=== PATIENT | male | born 1950 | race Caucasian/White ===

== ENCOUNTER 2017-02-20 20:36 | Inpatient (IN) ==
--- NOTE | 2017-02-20 21:08 | Emergency Department Note ---
Disposition Clinical Impression: Acute cholecystitis Disposition: Admitted As Inpatient Condition: Good Referrals: NONE,PCP [Primary Care Provider] - Abdominal Pain HPI - General Chief Complaint: ED Abdominal Pain Stated Complaint: ABD PAIN Time Seen by Provider: 02/20/17 20:41 Source: patient Nursing Notes Reviewed: Yes Vital Signs Reviewed: Yes - History of Present Illness HPI Narrative: 66-year-old male presents to emergency department with right upper quadrant abdominal pain. Patient has had abdominal pain for the last 48 hours. Started suddenly. Was seen at the [facility] diagnosed with acute cholecystitis few noncontrasted CT scan he was given IV pain medication which resolved his discomfort and he was sent to the [facility] for further evaluation and treatment. Currently he is comfortable he is not having any nausea or vomiting and has no other complaints at this time. Pt Subjective Complaint: abdominal pain Onset (ago): day(s) Consistency: constant Location: RUQ Pain Severity: none Pain Scale: 0 Quality: cramping Radiation: none Migration to: no migration Improves with: nothing Worsens with: nothing Associated symptoms: Reports: denies other symptoms Treatments prior to arrival: prescription analgesics - Related Data Home Medications Medication Instructions Recorded Confirmed Aspirin 81 mg PO DAILY 02/20/17 02/20/17 Atorvastatin [Lipitor] 10 mg PO HS 02/20/17 02/20/17 Calcium Carbonate [Calcium] 500 mg PO 02/20/17 [place]-3 Fatty Acids [Fish Oil] 300 mg PO 02/20/17 Allergies Allergy/AdvReac Type Severity Reaction Status Date / Time pravastatin Allergy Hives Verified 02/20/17 20:40 All systems ED: reviewed and negative except as stated. Constitutional: Reports: as per HPI Eyes: Reports: as per HPI ENT ED: Reports: as per HPI Cardiovascular: Reports: as per HPI Gastrointestinal: Reports: abdominal pain Genitourinary: Reports: as per HPI Musculoskeletal: Reports: as per HPI Integumentary: Reports: as per HPI Abdominal Pain PMH - Past Medical History Medical history: Reports: hyperlipidemia Male Surgical History: Reports: appendectomy, vasectomy, other Psychiatric history: Reports: no psych history - Social History Smoking status: Never smoker Alcohol use: Reports: none Drug use: Reports: none Physical Exam - General Limitations: no limitations General appearance: alert, in no apparent distress - Head Head exam: atraumatic - Eye Eye exam: Present: normal appearance - ENT ENT exam: normal exam - Neck Neck exam: Present: normal inspection - Chest Chest inspection: Present: normal inspection, symmetric chest wall rise - Respiratory Respiratory exam: Present: normal lung sounds bilaterally. Absent: respiratory distress - Cardiovascular Cardiovascular exam: Present: regular rate - Abdominal Exam Abdominal exam: Present: soft, tenderness (Very mild tenderness with palpation of the right upper quadrant and midepigastric area. There is no guarding or rigidity.), normal bowel sounds. Absent: distention, guarding, rebound, rigidity Abdominal tenderness: Present: RUQ - Neurological Exam Neurological exam: Present: alert - Psychiatric Psychiatric exam: Present: normal affect, normal mood - Skin Skin exam: Present: warm, dry, intact Course Vital Signs Temperature 98.1 F 02/20/17 20:41 Pulse Rate 50 02/20/17 20:41 Respiratory Rate 18 02/20/17 20:41 Blood Pressure 168/99 02/20/17 20:41 O2 Sat by Pulse Oximetry 98 02/20/17 20:41 Temperature 98.1 F 02/20/17 20:41 Pulse Rate 50 02/20/17 20:41 Respiratory Rate 18 02/20/17 20:41 Blood Pressure 168/99 02/20/17 20:41 O2 Sat by Pulse Oximetry 98 02/20/17 20:41 Oxygen Delivery Oxygen Delivery Room Air Abdominal Pain - MDM Narrative Medical decision making narrative: I contacted Dr. Oconnell general surgery after evaluating the patient. We reviewed the patient's CT findings and lab tests from the [facility]. She agreed to admit the patient. Patient appeared stable hemodynamically and comfortable as well while in the emergency department. He will be admitted to the hospital for further evaluation and treatment. I did ask if she wanted any additional antibiotics are therapy started at this time and she did not. - Medical Records Medical records reviewed: Yes I reviewed the patient's medical records. - Lab Data Lab results reviewed: Yes I reviewed the patient's lab results. - Radiology Data Radiology results reviewed: Yes I reviewed the patient's radiology results. I reviewed the radiology report from the [facility] which was consistent with acute cholecystitis.
[2017-02-20 21:41] LABS: Bilirubin,Urine Negative (Negative); Blood,Urine Negative (Negative); Clarity,Urine Clear (Clear); Color,Urine Yellow (Yellow); Glucose,Urine (UA) Normal (Normal); Ketones,Urine Negative (Negative); Leukocyte Esterase,Urine Negative (Negative); Nitrite,Urine Negative (Negative); Protein,Urine Negative (Neg-Trace); Specific Gravity,Urine 1.018 (1.010-1.025); Urobilinogen,Urine Normal (Normal)
[2017-02-20 21:45] LABS: Basophils # 0.1 K/mcL (0.0-0.2); Basophils % 0.8 %; Eosinophils # 0.1 K/mcL (0.0-0.6); Eosinophils % 0.8 %; Hematocrit 46.3 % (37.5-50.1); Hemoglobin 15.8 g/dL (12.9-16.9); Immature Granulocytes % 0.7 % (0-4); Lymphocytes # 1.7 K/mcL (0.6-4.6); Lymphocytes % 16.2 %; Mean Corpuscular HGB Conc 34.1 g/dL (31.6-35.5); Mean Corpuscular Hemoglobin 29.5 pg (28.0-33.3); Mean Corpuscular Volume 86.5 fL (83.0-100.0); Mean Platelet Volume 9.9 fL (9.4-12.4); Monocytes # 0.8 K/mcL (0.0-1.3); Monocytes % 7.1 %; Neutrophils # 7.9 K/mcL (1.6-8.9); Platelet Count 242 K/mcL (140-400); Red Blood Count 5.35 M/mcL (4.19-5.50); Red Cell Distribution Width 13.1 % (11.5-14.5); Segmented Neutrophils % 74.4 %
[2017-02-20 21:51] LABS: Prothrombin Time 11.1 Seconds (9.4-12.1)
[2017-02-20 21:54] LABS: Activated Partial Thrombo Time 25.7 Seconds (26.0-36.0)
[2017-02-20 21:57] LABS: Alanine Aminotransferase 21 Units/L (0-55); Albumin 3.8 g/dL (3.5-5.0); Albumin/Globulin Ratio 1.1 (1.1-2.2); Alkaline Phosphatase 139 Units/L (38-126); Amylase 83 Units/L (25-125); Aspartate Amino Transferase 19 Units/L (5-34); BUN/Creatinine Ratio 9 (6-26); Bilirubin,Direct 0.3 mg/dL (0.0-0.5); Bilirubin,Indirect 0.5 mg/dL (0.0-1.2); Bilirubin,Total 0.8 mg/dL (0.2-1.2); Blood Urea Nitrogen 9 mg/dL (8-26); Calcium 9.5 mg/dL (8.6-10.8); Carbon Dioxide 24 mEq/L (19-29); Chloride 105 mEq/L (98-109); Globulin 3.6 g/dL (2.4-3.5); Glucose 97 mg/dL (70-99); Lipase 33 Units/L (8-78); Osmolality,Calculated 287 (280-300); Potassium 3.7 mEq/L (3.5-4.5); Sodium 139 mEq/L (136-145); Total Protein 7.4 g/dL (6.0-8.3); eGFR For African Americans > 60 (> 60); eGFR For Non-African Americans > 60 (> 60)
[2017-02-20] MEDS ORDERED: *HR* Morphine 2 MG/ML SYRINGE IVP PRN (23:01)
[2017-02-20] MEDS ORDERED: Ondansetron 4 MG/2 ML VIAL IVP PRN (23:02)
[2017-02-20] MEDS: 0.9 % Sodium Chloride 1,000 ML IVC SCH (23:33)
[2017-02-20] MEDS: cefOXitin 2,000 MG in D5% in Water (Mini-Bag+) 100 ML IVPB SCH (23:36)
[2017-02-21 05:29] LABS: Basophils # 0.1 K/mcL (0.0-0.2); Eosinophils # 0.1 K/mcL (0.0-0.6); Eosinophils % 1.4 %; Hematocrit 42.7 % (37.5-50.1); Hemoglobin 14.3 g/dL (12.9-16.9); Immature Granulocytes % 0.8 % (0-4); Lymphocytes # 1.8 K/mcL (0.6-4.6); Lymphocytes % 22.6 %; Mean Corpuscular HGB Conc 33.5 g/dL (31.6-35.5); Mean Corpuscular Hemoglobin 29.4 pg (28.0-33.3); Mean Corpuscular Volume 87.7 fL (83.0-100.0); Mean Platelet Volume 10.2 fL (9.4-12.4); Monocytes # 0.7 K/mcL (0.0-1.3); Monocytes % 9.4 %; Neutrophils # 5.1 K/mcL (1.6-8.9); Platelet Count 222 K/mcL (140-400); Red Blood Count 4.87 M/mcL (4.19-5.50); Red Cell Distribution Width 13.2 % (11.5-14.5); Segmented Neutrophils % 64.8 %
[2017-02-21 05:43] LABS: Alanine Aminotransferase 19 Units/L (0-55); Albumin 3.2 g/dL (3.5-5.0); Albumin/Globulin Ratio 1.2 (1.1-2.2); Alkaline Phosphatase 116 Units/L (38-126); Aspartate Amino Transferase 15 Units/L (5-34); BUN/Creatinine Ratio 11 (6-26); Bilirubin,Direct 0.3 mg/dL (0.0-0.5); Bilirubin,Indirect 0.5 mg/dL (0.0-1.2); Bilirubin,Total 0.8 mg/dL (0.2-1.2); Blood Urea Nitrogen 11 mg/dL (8-26); Calcium 8.6 mg/dL (8.6-10.8); Carbon Dioxide 26 mEq/L (19-29); Chloride 108 mEq/L (98-109); Globulin 2.7 g/dL (2.4-3.5); Glucose 100 mg/dL (70-99); Osmolality,Calculated 287 (280-300); Potassium 3.7 mEq/L (3.5-4.5); Sodium 139 mEq/L (136-145); eGFR For African Americans > 60 (> 60); eGFR For Non-African Americans > 60 (> 60)
[2017-02-21 05:44] LABS: Total Protein 5.9 g/dL (6.0-8.3)
[2017-02-21] MEDS ORDERED: Pantoprazole 40 MG VIAL IVP SCH (06:30)
[2017-02-21] MEDS: 0.9 % Sodium Chloride 1,000 ML IVC SCH (08:58)
[2017-02-21] MEDS: cefOXitin 2,000 MG in D5% in Water (Mini-Bag+) 100 ML IVPB SCH ×2 (09:00→16:11)
--- NOTE | 2017-02-21 10:37 | General Surg History&Physical ---
<Crys Khan Kwaku - Last Filed: 02/21/17 10:34> Date of Encounter: 02/21/17 Time of Encounter: 09:30 Assessment and Plan (1) Acute cholecystitis Current Visit: Yes Status: Acute The assessment and plan as outlined above was discussed with the patient and/or family members who expressed understanding and agreement. All questions were answered. Risks, benefits, alternatives, expected outcomes have been reviewed with the patient regarding a laparoscopic cholecystectomy (possible open, possible cholangiogram) with Dr. Ryan in the next 24 hours and he is in agreement to proceed NPO IV fluids- 100ml/hour IV antibiotics- Cefoxitin Supportive care and pain control IS every 1 hour while awake PPI therapy daily Repeat am labs (2) Hyperlipidemia Current Visit: Yes Status: Chronic The assessment and plan as outlined above was discussed with the patient and/or family members who expressed understanding and agreement. All questions were answered. Qualifiers: Hyperlipidemia type: unspecified Qualified Code(s): E78.5 - Hyperlipidemia , unspecified (3) Pulmonary nodules/lesions, multiple Current Visit: Yes Status: Acute The assessment and plan as outlined above was discussed with the patient and/or family members who expressed understanding and agreement. All questions were answered. Low risk patient I discussed the findings with the patient and would recommend follow-up imaging in the next 6-12 months. He verbalized understanding. (4) Abnormal CT of liver Current Visit: Yes Status: Acute The assessment and plan as outlined above was discussed with the patient and/or family members who expressed understanding and agreement. All questions were answered. I discussed the findings on CAT scan evaluation with the patient and explained that he will need a designated CAT scan of the liver in the upcoming weeks. He verbalized understanding. (5) DVT prophylaxis Current Visit: Yes Status: Acute The assessment and plan as outlined above was discussed with the patient and/or family members who expressed understanding and agreement. All questions were answered. EPCDs to bilateral lower extremities for DVT prophylaxis Ambulate hallways 3 times a day with assistance History of Present Illness Chief complaint: Abdominal pain HPI: Mr. DASILVA is a 66 year old male who presented to the [facility] system with a 36 hour history of epigastric abdominal pain. He states that the pain has been constant since onset on Monday around 4 PM. He states the pain is localized to the epigastric area and he denies any radiating factors. He states that nothing makes the pain worse or better. He denies any nausea or vomiting. He denies any diarrhea or constipation. He denies any fevers or chills. He denies any heartburn. He denies any difficulty with urination. He denies any shortness of breath or chest pain. He states that he did have a pain similar to this approximately 3-4 years ago and he had a complete workup at that time. He was given the option to undergo surgery at that time but states that he opted to treat conservatively. He states that his pain went away and this is the first recurrence since that time. He has had a CAT scan evaluation of the [facility] which shows concerns for cholelithiasis and acute cholecystitis. He has been transferred to [place] for further workup and treatment. Past Med Surg Social Fam HX - Past Medical History Source: patient Medical history: hyperlipidemia Psychiatric history: no psych history - Past Surgical History Surgical History: appendectomy (in his 20's), vasectomy, other (EGD 3-4 years ago (benign polyp), Colonoscopy 3-4 year ago (normal)) - Social History Smoking Status: Never smoker Smokeless Tobacco Status: No Alcohol use: none Drug use: none Current living situation: Home - Independent Activity Level: Independent ambulation - Family History Mother Living Status: Age at : 77 Cause of : Uterine cancer Hx Family Cancer: Yes (uterine cancer) Father Living Status: Age at : 62 Cause of : Congenital heart condition Hx Family Cardiac Disorders: Yes (Congenital heart condition) Brother Living Status: Still Living Hx Family Cancer: Yes (alive (diagnosed at the age of 64)) Medications and Allergies Aspirin Enteric Coated [Aspirin EC] 81 mg PO DAILY 02/20/17 [History] Atorvastatin [Lipitor] 5 mg PO HS 02/20/17 [History] Calcium Citrate/Vitamin D3 [Calcium Citrate with D Tablet] 1 each PO DAILY 02/20 [History] Cholecalciferol (D-3) [Vitamin D] 2,000 unit PO DAILY 02/20/17 [History] [place]-3/Dha/Epa/Fish Oil [Fish Oil 1,000 mg Softgel] 1,000 mg PO BID 02/20/17 [ History] 3 Allergy/AdvReac Type Severity Reaction Status Date / Time pravastatin Allergy Hives Verified 02/20/17 20:40 Review of Systems All systems PM: reviewed and no additional remarkable complaints except as stated (in the HPI) All systems PM: A 10-system review of systems was performed and is negative for pertinent findings except as documented above in the HPI. General Surgery Exam Initial Vital Signs Temp Pulse Resp BP Pulse Ox 98.1 F 50 18 168/99 98 02/20/17 20:41 02/20/17 20:41 02/20/17 20:41 02/20/17 20:41 02/20/17 20:41 - General physical appearance well developed, well nourished, no distress - Eyes normal ocular movement - ENT normal mucosa, atraumatic, normocephalic - Neck trachea midline - Respiratory normal respiratory effort, clear to auscultation - Cardiovascular Cardiovascular exam: Present: RRR - Abdomen Abdomen general surgery: Present: bowel sounds present, soft, tender (mildly with deep palpation) Abdominal Tenderness: Present: epigastic, RUQ - Integumentary Integumentary general surgery: Present: warm and dry - Neurologic Present: CN 2-12 grossly intact - Musculoskeletal Present: normal gait, normal posture - Psychiatric Psychiatric general surgery: Present: appropriate, oriented to person, oriented to place, oriented to time, speech is normal, memory intact Results - Labs 02/21/17 04:48 02/21/17 04:48 Abnormal lab results APTT 25.7 Seconds (26.0-36.0) L 02/20/17 21:29 Glucose 100 mg/dL (70-99) H 02/21/17 04:48 POC Glucose 102 (58-89) H 02/21/17 05:22 Serum Total Protein 5.9 g/dL (6.0-8.3) L D 02/21/17 04:48 Albumin 3.2 g/dL (3.5-5.0) L 02/21/17 04:48 Diabetes panel 02/21/17 Range/Units 04:48 Sodium 139 (136-145) mEq/L Potassium 3.7 (3.5-4.5) mEq/L Chloride 108 (98-109) mEq/L Carbon Dioxide 26 (19-29) mEq/L BUN 11 (8-26) mg/dL Creatinine 1.00 (0.72-1.25) mg/dL Glucose 100 H (70-99) mg/dL Calcium 8.6 (8.6-10.8) mg/dL AST 15 (5-34) Units/L ALT 19 (0-55) Units/L Alkaline Phosphatase 116 (38-126) Units/L Albumin 3.2 L (3.5-5.0) g/dL Calcium panel 02/21/17 Range/Units 04:48 Calcium 8.6 (8.6-10.8) mg/dL Albumin 3.2 L (3.5-5.0) g/dL Pituitary panel 02/21/17 Range/Units 04:48 Sodium 139 (136-145) mEq/L Potassium 3.7 (3.5-4.5) mEq/L Chloride 108 (98-109) mEq/L Carbon Dioxide 26 (19-29) mEq/L BUN 11 (8-26) mg/dL Creatinine 1.00 (0.72-1.25) mg/dL Glucose 100 H (70-99) mg/dL Calcium 8.6 (8.6-10.8) mg/dL Adrenal panel 02/21/17 Range/Units 04:48 Sodium 139 (136-145) mEq/L Potassium 3.7 (3.5-4.5) mEq/L Chloride 108 (98-109) mEq/L Carbon Dioxide 26 (19-29) mEq/L BUN 11 (8-26) mg/dL Creatinine 1.00 (0.72-1.25) mg/dL Glucose 100 H (70-99) mg/dL Calcium 8.6 (8.6-10.8) mg/dL Total Bilirubin 0.8 (0.2-1.2) mg/dL AST 15 (5-34) Units/L ALT 19 (0-55) Units/L Alkaline Phosphatase 116 (38-126) Units/L Albumin 3.2 L (3.5-5.0) g/dL All other labs normal. - Imaging Additional studies[facility] and findings include: #1 Acute cholecystitis #2 Multiple pulmonary nodules bilaterally in lung bases (low risk patient and follow Fleishner criteria for follow-up imaging) #3 Increased hypoattentuation in the right lobe of the liver (could be consistent with liver steatosis but indication for designated liver CT for further evaluation) - Attending Attestation For this encounter, I have reviewed the G[employer] SHOVEL OPERATOR or PA documentation, treatment plan, and medical decision making; and I have had face to face time with this patient. <Genia Ryan Meño - Last Filed: 02/21/17 19:59> Date of Encounter: 02/21/17 Assessment and Plan (1) Acute cholecystitis Current Visit: Yes Status: Acute The assessment and plan as outlined above was discussed with the patient and/or family members who expressed understanding and agreement. All questions were answered. History of Present Illness HPI: Mr. DASILVA is a 66 year old male Review of Systems All systems PM: A 10-system review of systems was performed and is negative for pertinent findings except as documented above in the HPI. General Surgery Exam Initial Vital Signs Temp Pulse Resp BP Pulse Ox 98.1 F 50 18 168/99 98 02/20/17 20:41 02/20/17 20:41 02/20/17 20:41 02/20/17 20:41 02/20/17 20:41 Results - Labs 02/21/17 04:48 02/21/17 04:48 Abnormal lab results APTT 25.7 Seconds (26.0-36.0) L 02/20/17 21:29 Glucose 100 mg/dL (70-99) H 02/21/17 04:48 POC Glucose 112 (58-89) H 02/21/17 11:07 Serum Total Protein 5.9 g/dL (6.0-8.3) L D 02/21/17 04:48 Albumin 3.2 g/dL (3.5-5.0) L 02/21/17 04:48 Diabetes panel 02/21/17 Range/Units 04:48 Sodium 139 (136-145) mEq/L Potassium 3.7 (3.5-4.5) mEq/L Chloride 108 (98-109) mEq/L Carbon Dioxide 26 (19-29) mEq/L BUN 11 (8-26) mg/dL Creatinine 1.00 (0.72-1.25) mg/dL Glucose 100 H (70-99) mg/dL Calcium 8.6 (8.6-10.8) mg/dL AST 15 (5-34) Units/L ALT 19 (0-55) Units/L Alkaline Phosphatase 116 (38-126) Units/L Albumin 3.2 L (3.5-5.0) g/dL Calcium panel 02/21/17 Range/Units 04:48 Calcium 8.6 (8.6-10.8) mg/dL Albumin 3.2 L (3.5-5.0) g/dL Pituitary panel 02/21/17 Range/Units 04:48 Sodium 139 (136-145) mEq/L Potassium 3.7 (3.5-4.5) mEq/L Chloride 108 (98-109) mEq/L Carbon Dioxide 26 (19-29) mEq/L BUN 11 (8-26) mg/dL Creatinine 1.00 (0.72-1.25) mg/dL Glucose 100 H (70-99) mg/dL Calcium 8.6 (8.6-10.8) mg/dL Adrenal panel 02/21/17 Range/Units 04:48 Sodium 139 (136-145) mEq/L Potassium 3.7 (3.5-4.5) mEq/L Chloride 108 (98-109) mEq/L Carbon Dioxide 26 (19-29) mEq/L BUN 11 (8-26) mg/dL Creatinine 1.00 (0.72-1.25) mg/dL Glucose 100 H (70-99) mg/dL Calcium 8.6 (8.6-10.8) mg/dL Total Bilirubin 0.8 (0.2-1.2) mg/dL AST 15 (5-34) Units/L ALT 19 (0-55) Units/L Alkaline Phosphatase 116 (38-126) Units/L Albumin 3.2 L (3.5-5.0) g/dL All other labs normal. - Attending Attestation I have personally performed a face to face evaluation on this patient. I have reviewed and agree with the care plan. History and Exam by me shows:
--- NOTE | 2017-02-21 15:18 | Anesthesia Evaluation PreOp ---
Date of Encounter: 02/21/17 Time of Encounter: 17:36 - Past History Planned Operation: lap ron Cardiac History: Hyperlipidemia Pulmonary History: Denies Any Significant HX [employer] History: Denies Any Significant HX Other Medical History: Hepatic (undefined liver lesions) Anesthesia History: No Prior Anesthetic Complications, Past Anesthesia (appy, vasectomy) Alcohol Use: none Drug use: none Medications and Allergies Aspirin Enteric Coated [Aspirin EC] 81 mg PO DAILY 02/20/17 [History] Atorvastatin [Lipitor] 5 mg PO HS 02/20/17 [History] Calcium Citrate/Vitamin D3 [Calcium Citrate with D Tablet] 1 each PO DAILY 02/20 [History] Cholecalciferol (D-3) [Vitamin D] 2,000 unit PO DAILY 02/20/17 [History] [place]-3/Dha/Epa/Fish Oil [Fish Oil 1,000 mg Softgel] 1,000 mg PO BID 02/20/17 [ History] 3 Allergy/AdvReac Type Severity Reaction Status Date / Time pravastatin Allergy Hives Verified 02/20/17 20:40 - Meds/Allergy Pre-op Review Medications Reviewed: Yes Allergies Reviewed: Yes Beta Blockers on Current Med List: No Anesthesia Results - Labs 02/21/17 04:48 02/21/17 04:48 Anesthesia Exam Selected Entries 02/21/17 11:01 Temperature 97.9 F Pulse Rate 58 Respiratory Rate 16 Blood Pressure 142/84 O2 Sat by Pulse Oximetry 95 Weight: 82.5kg NPO (# of Hours): 8 - HEENT Pupil (Motor): EOMI Mallampati: II Teeth: Edentulous Oral Opening: Greater than 3 - [employer] LOC: Oriented [employer] Motor: Normal RUE, Normal LUE, Normal RLE, Normal LLE, Normal Face [employer] Sensory: Normal: RUE, LUE, RLE, LLE, Face - Cardiac Rhythm: Regular Murmur: None - Pulmonary Breath Sounds: bilateral Clear Respiratory Effort: Symmetrical Anesthesia Assess/Plan ASA Score: 2 Modified Leo Scale for Level of Consciousness: Cooperative, oriented, and tranquil Anesthetic Plan: General Monitoring Plan: Standard Monitors Recovery Plan: PACU (discussed GA, agrees to proceed)
[2017-02-21] MEDS ORDERED: *HR* Propofol 200 MG/20 ML VIAL IVP ONE ×2 (15:53→17:47)
[2017-02-21] MEDS ORDERED: *HR* Rocuronium Bromide 50 MG/5 ML VIAL ONE ×2 (15:53→17:48)
[2017-02-21] MEDS ORDERED: Lidocaine -MPF 2% 2 ML VIAL ONE ×2 (15:53→17:48)
[2017-02-21] MEDS ORDERED: Ondansetron 4 MG/2 ML VIAL ONE ×3 (15:53→20:05)
[2017-02-21] MEDS ORDERED: *HR* Midazolam HCl 2 MG/2 ML VIAL ONE ×2 (15:53→17:46)
[2017-02-21] MEDS ORDERED: *HR* FentaNYL (PF) 100 MCG/2 ML VIAL ONE ×2 (15:53→17:46)
[2017-02-21] MEDS ORDERED: Lidocaine -MPF 4% 5 ML AMPUL ONE ×2 (15:56→17:50)
[2017-02-21] MEDS ORDERED: *HR* Succinylcholine 200 MG/10 ML VIAL IVP ONE (17:48)
[2017-02-21] MEDS ORDERED: CefOXitin 2,000 MG VIAL IVPB ONE (18:52)
[2017-02-21] MEDS ORDERED: Dexamethasone 4 MG/ML VIAL ONE (19:10)
[2017-02-21] MEDS ORDERED: Neostigmine Methylsulfate 3 MG/3 ML SYRINGE ONE (19:12)
--- NOTE | 2017-02-21 19:57 | Operative Note ---
Date of procedure: 02/21/17 Pre-op diagnosis: acute cholecystitis Post-op diagnosis: same Procedure: Laparoscopic cholecystectomy Complications: none immediate Anesthesia: GETA, local Local Anesthetics: 0.5% Sensorcaine HCL SubQ (cc) Surgeon: Genia Ryan Lead Pressman [employer] Printing: Delisa Aguilar Estimated blood loss (cc): 25 Specimen: gallbladder and contents Condition: stable Disposition: PACU Procedure in Detail: The patient was brought into the operating suite and placed supine on the operating table. Sign-in was performed and everyone was in agreement. Anesthesia was induced and patient was endotracheally intubated by anesthesia without incident and they also placed an OG tube. The abdomen was prepped and draped in the usual sterile fashion. A timeout was performed again everyone was in agreement. A supraumbilical incision was made through the skin into the subcutaneous tissue with an 11 blade. Towel clamps were placed on either side of the umbilicus for retraction. S retractors were used to dissect down to the anterior abdominal wall linea alba fascia. A Veress needle was placed through this incision and a water drop test confirmed placement and the abdomen was insufflated. The abdomen was entered with a 5 mm 0 degree laparoscope on a 5 mm X-heath trocar. The area and entry was visualized was no bleeding and no apparent bowel injury. A 5 mm subxiphoid port was placed under direct visualization after first incising the skin with an 11 blade. A right upper quadrant subcostal position midclavicular line 5 mm port was placed under direct visualization after first incising skin with 11 blade. The laparoscope was placed in this and we exchanged the supraumbilical port for a 12 mm port under direct visualization. The last 5 mm port was placed in the right upper quadrant subcostal position anterior axillary line after first incising the skin with an 11 blade. The patient was placed in steep reverse Trendelenburg left side down position. The dome of the gallbladder was grasped and retracted cephalad. Omental adhesions to the body and infundibulum of the gallbladder were taken down bluntly with the [place]. The infundibulum was grasped and retracted laterally. Using the [place] we dissected out the cystic duct and cystic artery. Two 5 mm hemoclips were placed distally on the cystic duct one proximally and it was transected with curved scissors. The cystic artery was doubly clipped proximally, once distally and transected with curved scissors. The gallbladder was removed off the cystic plate with the Bovie. Any bleeding points were stopped with the Bovie. The gallbladder was placed in a laparoscopic Endo Catch bag and removed via the supraumbilical incision site. The inferior edge of the liver was bluntly retracted cephalad and the cystic plate was copiously irrigated with sterile saline. There was no bleeding or apparent bile leak from the cystic plate and the clips on the cystic artery and duct were intact. There was a little oozing from the gallbladder fossa and a piece of surgicel was placed at the gallbladder fossa. All irrigation was suctioned free from the abdomen. All insufflation was suctioned free from the abdomen and the ports removed. The abdominal wall at the supraumbilical incision site was closed with a 0 Vicryl [id number] stitch. 30 mL of 0.5% Marcaine was injected subcutaneously at the 4 port sites. The skin at the three 5 mm port sites were closed with 4-0 Monocryl interrupted subcuticular stitches. The skin at the supraumbilical incision site was closed with a 4-0 Monocryl running subcuticular stitch. Steri-Strips were applied to all wounds. The patient was awoken in the operating suite having tolerated the procedure well and were taken to PACU in stable condition after all lap and ensuring counts were correct at the end of the case.
[2017-02-21] MEDS ORDERED: Ondansetron 4 MG/2 ML VIAL IVP ONE (20:05)
[2017-02-21] MEDS ORDERED: *HR* HYDROmorphone (PF) 1 MG/ML SYRINGE ONE (20:05)
[2017-02-21] MEDS: *HR* HYDROmorphone 2 MG/ML SYRINGE IVP PRN ×4 (20:05→20:31)
[2017-02-21] MEDS ORDERED: Glycopyrrolate 0.2 MG/ML VIAL ONE (20:15)
[2017-02-21] MEDS ORDERED: 0.9 % Sodium Chloride 1,000 ML IVC SCH (22:30)
[2017-02-21] MEDS ORDERED: *HR* Morphine 2 MG/ML SYRINGE IVP PRN (22:30)
[2017-02-21] MEDS ORDERED: *HR* OxyCODONE/APAP 5/325 TABLET PO PRN (22:30)
[2017-02-21] MEDS ORDERED: Ondansetron 4 MG/2 ML VIAL IVP PRN (22:30)
[2017-02-22] MEDS: cefOXitin 2,000 MG in D5% in Water (Mini-Bag+) 100 ML IVPB SCH ×4 (00:21→23:27)
[2017-02-22] MEDS: Pantoprazole 40 MG VIAL IVP SCH (05:37)
[2017-02-22 05:52] LABS: Basophils % 0.2 %; Hematocrit 45.2 % (37.5-50.1); Hemoglobin 15.2 g/dL (12.9-16.9); Immature Granulocytes % 0.6 % (0-4); Lymphocytes # 0.5 K/mcL (0.6-4.6); Lymphocytes % 4.3 %; Mean Corpuscular HGB Conc 33.6 g/dL (31.6-35.5); Mean Corpuscular Hemoglobin 29.2 pg (28.0-33.3); Mean Corpuscular Volume 86.9 fL (83.0-100.0); Mean Platelet Volume 10.3 fL (9.4-12.4); Monocytes # 0.5 K/mcL (0.0-1.3); Monocytes % 4.3 %; Neutrophils # 10.6 K/mcL (1.6-8.9); Platelet Count 230 K/mcL (140-400); Red Cell Distribution Width 12.8 % (11.5-14.5); Segmented Neutrophils % 90.6 %
[2017-02-22 06:11] LABS: Alanine Aminotransferase 62 Units/L (0-55); Albumin 3.3 g/dL (3.5-5.0); Albumin/Globulin Ratio 1.1 (1.1-2.2); Alkaline Phosphatase 128 Units/L (38-126); Aspartate Amino Transferase 63 Units/L (5-34); BUN/Creatinine Ratio 12 (6-26); Bilirubin,Total 0.6 mg/dL (0.2-1.2); Blood Urea Nitrogen 12 mg/dL (8-26); Calcium 8.6 mg/dL (8.6-10.8); Carbon Dioxide 22 mEq/L (19-29); Chloride 105 mEq/L (98-109); Globulin 3.1 g/dL (2.4-3.5); Glucose 101 mg/dL (70-99); Osmolality,Calculated 282 (280-300); Potassium 4.2 mEq/L (3.5-4.5); Sodium 136 mEq/L (136-145); Total Protein 6.4 g/dL (6.0-8.3); eGFR For African Americans > 60 (> 60); eGFR For Non-African Americans > 60 (> 60)
--- NOTE | 2017-02-22 12:28 | Discharge Summary ---
Date of Encounter: 02/23/17 Time of Encounter: 09:52 - Discharge Diagnosis (1) Acute cholecystitis Priority: Primary Status: Resolved (2) Pulmonary nodules/lesions, multiple Priority: Secondary Status: Chronic (3) Abnormal CT of liver Priority: Secondary Status: Chronic - Discharge Medications Prescriptions: Ondansetron ODT [Zofran ODT] 4 mg SL Q4HR #15 tab.rapdis Amoxicillin/Clavulanate [Augmentin] 875 mg PO BIDWM #24 tablet Docusate [Colace] 100 mg PO BID #60 capsule OxyCODONE/APAP 7.5/325 [Percocet 7.5/325 MG] 1 - 2 each PO Q6H PRN #56 tablet PRN Reason: Pain Home Medications: Aspirin Enteric Coated [Aspirin EC] 81 mg PO DAILY 02/20/17 [History] Atorvastatin [Lipitor] 5 mg PO HS 02/20/17 [History] Calcium Citrate/Vitamin D3 [Calcium Citrate with D Tablet] 1 each PO DAILY 02/20 [History] Cholecalciferol (D-3) [Vitamin D] 2,000 unit PO DAILY 02/20/17 [History] Arpin-3/Dha/Epa/Fish Oil [Fish Oil 1,000 mg Softgel] 1,000 mg PO BID 02/20/17 [ History] Amoxicillin/Clavulanate [Augmentin] 875 mg PO BIDWM #24 tablet 02/23/17 [Rx] Docusate [Colace] 100 mg PO BID #60 capsule 02/23/17 [Rx] Ondansetron ODT [Zofran ODT] 4 mg SL Q4HR #15 tab.rapdis 02/23/17 [Rx] OxyCODONE/APAP 7.5/325 [Percocet 7.5/325 MG] 1 - 2 each PO Q6H PRN #56 tablet [Rx] Allergies/Adverse Reactions: 3 Allergy/AdvReac Type Severity Reaction Status Date / Time pravastatin Allergy Hives Verified 02/20/17 20:40 General Surgery Exam Initial Vital Signs Temp Pulse Resp BP Pulse Ox 98.1 F 50 18 168/99 98 02/20/17 20:41 02/20/17 20:41 02/20/17 20:41 02/20/17 20:41 02/20/17 20:41 - General physical appearance well developed, well nourished, no distress - Eyes normal ocular movement - ENT atraumatic, normocephalic - Neck trachea midline, no venous distension - Respiratory normal expansion, normal respiratory effort, clear to auscultation - Cardiovascular Cardiovascular exam: Present: RRR - Abdomen Abdomen general surgery: Present: bowel sounds present, soft, tender (Expected postoperative) Hernia: Present: none - Incision Incision: Present: clean and dry, intact - Integumentary Integumentary general surgery: Present: warm and dry, no abnormal pigmentation - Neurologic Present: CN 2-12 grossly intact, normal coordination, normal sensation - Musculoskeletal Present: normal gait, normal posture - Psychiatric Psychiatric general surgery: Present: A&Ox3, appropriate, oriented to person, oriented to place, oriented to time, speech is normal, memory intact Date of admission: 02/20/17 22:04 [facility] care physician[facility] Discharging clinician: Genia Ryan (Romulo Almazan) Anticipated date of discharge: 02/23/17 - Patient Status Disposition: Home, Self-Care Condition: Good Functional capacity at discharge: independent ambulation Overall status at discharge: patient is progressing back to baseline - Discharge Instructions Instructions: Laparoscopic Cholecystectomy (DC) [facility]: [facility] Care Provider[facility] - Veronica Almazan [employer] OPERATOR [Advanced Practice Nurse] - 03/07/17 2:00 pm Additional Instructions: 1. No pushing, pulling, lifting greater than 15 pounds for 2 weeks. 2. You may shower beginning tomorrow, but no tub bath, soaking, or swimming for two weeks. 3. You may begin driving when you are off narcotics and are safe to react in a car. 4. Take your antibiotics as directed if prescribed. Do not stop them prior to the end of the prescription. 5. Take your pain medication as prescribed. Do not take more than as prescribed. Do not share your pain medication with any other people. 6. Take stool softener is well on narcotics. You may hold these for loose stool. 7. Report any fevers greater than 100.5, increase abdominal discomfort, or drainage from your incision sites. 8. Follow-up in the office as directed. - Diet and Activity Activity: increase activity as tolerated Diet: advance to your usual diet - Hospital Course Hospital course: Mr. ISAACS is a 66 year old male who presented on 02/20/2017 for complaints of a 36 hour history of epigastric abdominal pain, denied any radiating factors, denied any alleviating or aggravating factors, denied nausea or vomiting, diarrhea or constipation, fever or chills. He had been evaluated at the [facility] and given the option for conservative treatment. He reported to the [facility] emergency department where he had a repeat CT scan which showed concerns for cholelithiasis and acute cholecystitis. He was transferred to [facility] for further workup and treatment. He was taken to the operating room on 02/21/2017 where he underwent a Laparoscopic cholecystectomy with accidental injury to the gallbladder while dissecting off the liver, small amount of bile spillage. Postoperative week, he had a one-day increase in his white blood cell count from 7.8 to 11.7 and has resolved on 02/23/2017. His liver function remains slightly elevated with an AST 63, a LT of 84, and alkaline phosphatase at 130. He is asymptomatic, his exam is benign, and he request to [facility]. He is ambulating avoiding without difficulty. He is tolerating a regular diet without nausea and vomiting, reports flatus but no BM and was treated with one dose of Miralax. We will begin d/c planning to home with a follow-up in the office in two weeks and repeat lab work in one week. He did have incidental findings of pulmonary nodules and an abnormal liver CT. Further diagnostic imaging was obtained including a CT of the chest with contrast which revealed a tiny sub plural bilateral pulmonary nodules with by a basilar moderate atelectasis. The largest nodule is 6 mm. He was recommended to follow up with his PCP according to the Fleischner Society guidelines. He also had a CT of the abdomen and pelvis with IV contrast which revealed a sub Sealer hepatic lesion measuring 3.41.3 cm on axial image 44 suggestive of a hemangioma. No other masses or Ephesians were identified in the liver. For complete characterization of the lesion a multiphasic CT or MRI could be considered and follow-up. He was recommended to follow up with his PCP. Mr. Isaacs has been made aware of the incidental findings, repeat imaging findings and recommendations. He verbalizes understanding and adherence. - Time Spent with Patient Total time spent providing and/or coordinating discharge services: Less than 30 minutes Labs on day of discharge: Labs from last 24 hours 02/22/17 02/22/17 04:58 04:58 WBC 11.7 H RBC 5.20 Hgb 15.2 Hct 45.2 MCV 86.9 MCH 29.2 MCHC 33.6 RDW 12.8 Plt Count 230 MPV 10.3 Immature Gran % 0.6 Seg Neutrophils % 90.6 Lymphocytes % 4.3 Monocytes % 4.3 Eosinophils % 0.0 Basophils % 0.2 Neutrophils # 10.6 H Lymphocytes # 0.5 L Monocytes # 0.5 Eosinophils # 0.0 Basophils # 0.0 Sodium 136 Potassium 4.2 Chloride 105 Carbon Dioxide 22 BUN 12 Creatinine 1.00 Est GFR ( Amer) > 60 Est GFR (Non-Af Amer) > 60 BUN/Creatinine Ratio 12 Glucose 101 H Calculated Osmolality 282 Calcium 8.6 Total Bilirubin 0.6 AST 63 H ALT 62 H Alkaline Phosphatase 128 H Serum Total Protein 6.4 Albumin 3.3 L Globulin 3.1 Albumin/Globulin Ratio 1.1
--- NOTE | 2017-02-22 13:12 | General Surgery Progress Note ---
<ThaVeronica Wilder - Last Filed: 02/22/17 13:41> Date of Encounter: 02/22/17 Time of Encounter: 12:00 - Assessment and Plan (1) Acute cholecystitis Current Visit: Yes Status: Acute POD #1 Laproscopic cholecystectomy Noted accidental gall bladder injury and bile leakage during suregery. No peritoneal signs at this time. He is tolerating full liquid diet, we will advance to regular. D/c planning in the next 24-48 hours pending clinical course. IV antibiotics for another 24 hours. Plan: -continue IV antibiotic -regular diet -continue supportive care and discomfort management -ambulate as tolerated -continue G.I. and DVT prophylaxis -Repeat AM labs -Serial abdominal exams (2) DVT prophylaxis Current Visit: Yes Status: Acute EPCDs Frequent ambulation (3) Pulmonary nodules/lesions, multiple Current Visit: Yes Status: Acute Although he is low risk, the bases of the lungs were all that was able to be viewed on the CT. Will obtain a CT of chest this admission. Further recommendations pending. Subjective Patient reports: no new complaints, feels better, still having pain, pain is less, tolerating liquids well, voiding w/o difficulty, flatus, no bowel movement , afebrile Objective Vital Signs - Last 8 Hours Temp Pulse Resp BP Pulse Ox 02/22/17 10:39 98.6 F 58 16 149/72 95 02/22/17 08:10 95 02/22/17 06:59 98.8 F 72 16 147/76 95 Intake and Output 02/21/17 02/22/17 02/22/17 23:59 07:59 15:59 Intake Total 100 / 100 100 / 100 240 / 240 Output Total 25 / 25 1150 / 1150 650 / 650 Balance 75 / 75 -1050 / -1050 -410 / -410 Intake: IV Fluids 100 / 100 100 / 100 Mefoxin 2,000 MG In Dextrose 5% 100 / 100 100 / 100 (Minibag+) 100 ML 100 ML @ 200 mls/hr IVPB Q8HR KATJA Rx#: [id number] Oral 0 / 0 0 / 0 240 / 240 Output: Urine 1150 / 1150 650 / 650 Estimated Blood Loss Other: Meal NPO Breakfast Percent of Meal Consumed 0% 100% # Bowel Movements 0 0 Weight 82.2 kg Patient Weight 02/22/17 23:59 Weight 82.2 kg - General physical appearance well nourished, no distress, moderate pain - Eyes normal ocular movement - ENT atraumatic, normocephalic - Neck Neck exam: trachea midline - Respiratory normal expansion, normal respiratory effort, clear to auscultation - Cardiovascular Cardiovascular exam: Present: RRR - Abdomen Abdomen: Present: bowel sounds present, soft, tender (Expected postoperative) - Incision Incision: Present: clean and dry, intact - Integumentary no rash, no growths - Neurologic CN 2-12 grossly intact, normal coordination, normal sensation - Musculoskeletal normal gait, normal posture - Psychiatric oriented to time, oriented to person, oriented to place, speech is normal, memory intact - Labs 02/22/17 04:58 02/22/17 04:58 Diabetes panel 02/22/17 Range/Units 04:58 Sodium 136 (136-145) mEq/L Potassium 4.2 (3.5-4.5) mEq/L Chloride 105 (98-109) mEq/L Carbon Dioxide 22 (19-29) mEq/L BUN 12 (8-26) mg/dL Creatinine 1.00 (0.72-1.25) mg/dL Glucose 101 H (70-99) mg/dL Calcium 8.6 (8.6-10.8) mg/dL AST 63 H (5-34) Units/L ALT 62 H (0-55) Units/L Alkaline Phosphatase 128 H (38-126) Units/L Albumin 3.3 L (3.5-5.0) g/dL Calcium panel 02/22/17 Range/Units 04:58 Calcium 8.6 (8.6-10.8) mg/dL Albumin 3.3 L (3.5-5.0) g/dL Pituitary panel 02/22/17 Range/Units 04:58 Sodium 136 (136-145) mEq/L Potassium 4.2 (3.5-4.5) mEq/L Chloride 105 (98-109) mEq/L Carbon Dioxide 22 (19-29) mEq/L BUN 12 (8-26) mg/dL Creatinine 1.00 (0.72-1.25) mg/dL Glucose 101 H (70-99) mg/dL Calcium 8.6 (8.6-10.8) mg/dL Adrenal panel 02/22/17 Range/Units 04:58 Sodium 136 (136-145) mEq/L Potassium 4.2 (3.5-4.5) mEq/L Chloride 105 (98-109) mEq/L Carbon Dioxide 22 (19-29) mEq/L BUN 12 (8-26) mg/dL Creatinine 1.00 (0.72-1.25) mg/dL Glucose 101 H (70-99) mg/dL Calcium 8.6 (8.6-10.8) mg/dL Total Bilirubin 0.6 (0.2-1.2) mg/dL AST 63 H (5-34) Units/L ALT 62 H (0-55) Units/L Alkaline Phosphatase 128 H (38-126) Units/L Albumin 3.3 L (3.5-5.0) g/dL - VTE Documentation of Mechanical Device: Intermittent pneumatic compression device Consult Discharge Plan - Plan Instructions: Laparoscopic Cholecystectomy (DC) Additional Instructions: 1. No pushing, pulling, lifting greater than 15 pounds for 2 weeks. 2. You may shower beginning tomorrow, but no tub bath, soaking, or swimming for two weeks. 3. You may begin driving when you are off narcotics and are safe to react in a car. 4. Take your antibiotics as directed if prescribed. Do not stop them prior to the end of the prescription. 5. Take your pain medication as prescribed. Do not take more than as prescribed. Do not share your pain medication with any other people. 6. Take stool softener is well on narcotics. You may hold these for loose stool. 7. Report any fevers greater than 100.5, increase abdominal discomfort, or drainage from your incision sites. 8. Follow-up in the office as directed. Referrals: Veronica Almazan, SATHISH [Advanced Practice Nurse] - 03/07/17 2:00 pm [place],PCP [Primary Care Provider] - <Genia Ryan - Last Filed: 02/23/17 07:44> Date of Encounter: 02/22/17 - Assessment and Plan (1) Acute cholecystitis Current Visit: Yes Status: Acute continue abx regular diet sliv pain control trend labs (2) Abnormal CT of liver Current Visit: Yes Status: Acute will repeat CT abdomen with iv contrast to evaluate liver (3) Pulmonary nodules/lesions, multiple Current Visit: Yes Status: Acute Subjective Patient reports: feels better, still having pain, pain is less, tolerating liquids well, flatus Objective Vital Signs - Last 8 Hours Temp Pulse Resp BP Pulse Ox 02/23/17 06:31 99.1 F 66 16 155/82 96 02/23/17 04:06 98.6 F 71 16 141/76 96 Intake and Output 02/22/17 02/22/17 02/23/17 15:59 23:59 07:59 Intake Total 340 / 340 280 / 280 100 / 100 Output Total 1150 / 1150 0 / 0 200 / 200 Balance -810 / -810 280 / 280 -100 / -100 Intake: IV Fluids 100 / 100 100 / 100 100 / 100 Mefoxin 2,000 MG In Dextrose 5% 100 / 100 100 / 100 100 / 100 (Minibag+) 100 ML 100 ML @ 200 mls/hr IVPB Q8HR KATJA Rx#: [id number] Oral 240 / 240 180 / 180 0 / 0 Output: Urine 1150 / 1150 0 / 0 200 / 200 Other: Meal Breakfast Dinner Percent of Meal Consumed 100% 40% # Bowel Movements 0 0 Weight 82.6 kg Patient Weight 02/23/17 23:59 Weight 82.6 kg - General physical appearance well nourished, no distress - Eyes normal ocular movement - ENT normocephalic - Neck Neck exam: trachea midline - Respiratory normal expansion, normal respiratory effort - Cardiovascular Cardiovascular exam: Present: RRR - Abdomen Abdomen: Present: bowel sounds present, soft, tender - Incision Incision: Present: clean and dry, intact - Integumentary no growths - Neurologic CN 2-12 grossly intact - Musculoskeletal normal posture - Psychiatric oriented to time, memory intact - Labs 02/23/17 03:12 02/23/17 03:12 Diabetes panel 02/23/17 Range/Units 03:12 Sodium 138 (136-145) mEq/L Potassium 3.8 (3.5-4.5) mEq/L Chloride 105 (98-109) mEq/L Carbon Dioxide 25 (19-29) mEq/L BUN 9 (8-26) mg/dL Creatinine 1.06 (0.72-1.25) mg/dL Glucose 111 H (70-99) mg/dL Calcium 9.4 (8.6-10.8) mg/dL AST 63 H (5-34) Units/L ALT 84 H (0-55) Units/L Alkaline Phosphatase 130 H (38-126) Units/L Albumin 3.5 (3.5-5.0) g/dL Calcium panel 02/23/17 Range/Units 03:12 Calcium 9.4 (8.6-10.8) mg/dL Albumin 3.5 (3.5-5.0) g/dL Pituitary panel 02/23/17 Range/Units 03:12 Sodium 138 (136-145) mEq/L Potassium 3.8 (3.5-4.5) mEq/L Chloride 105 (98-109) mEq/L Carbon Dioxide 25 (19-29) mEq/L BUN 9 (8-26) mg/dL Creatinine 1.06 (0.72-1.25) mg/dL Glucose 111 H (70-99) mg/dL Calcium 9.4 (8.6-10.8) mg/dL Adrenal panel 02/23/17 Range/Units 03:12 Sodium 138 (136-145) mEq/L Potassium 3.8 (3.5-4.5) mEq/L Chloride 105 (98-109) mEq/L Carbon Dioxide 25 (19-29) mEq/L BUN 9 (8-26) mg/dL Creatinine 1.06 (0.72-1.25) mg/dL Glucose 111 H (70-99) mg/dL Calcium 9.4 (8.6-10.8) mg/dL Total Bilirubin 0.6 (0.2-1.2) mg/dL AST 63 H (5-34) Units/L ALT 84 H (0-55) Units/L Alkaline Phosphatase 130 H (38-126) Units/L Albumin 3.5 (3.5-5.0) g/dL - Attending Attestation I have personally performed a face to face evaluation on this patient. I have reviewed and agree with the care plan. History and Exam by me shows:
[2017-02-23 03:53] LABS: Basophils # 0.1 K/mcL (0.0-0.2); Basophils % 0.6 %; Eosinophils % 0.4 %; Hematocrit 46.8 % (37.5-50.1); Hemoglobin 16.3 g/dL (12.9-16.9); Immature Granulocytes % 0.7 % (0-4); Lymphocytes % 9.9 %; Mean Corpuscular HGB Conc 34.8 g/dL (31.6-35.5); Mean Platelet Volume 10.2 fL (9.4-12.4); Monocytes # 0.9 K/mcL (0.0-1.3); Monocytes % 8.4 %; Neutrophils # 8.4 K/mcL (1.6-8.9); Platelet Count 236 K/mcL (140-400); Red Blood Count 5.44 M/mcL (4.19-5.50); Red Cell Distribution Width 13.2 % (11.5-14.5)
[2017-02-23 04:17] LABS: Alanine Aminotransferase 84 Units/L (0-55); Albumin 3.5 g/dL (3.5-5.0); Albumin/Globulin Ratio 0.9 (1.1-2.2); Alkaline Phosphatase 130 Units/L (38-126); Aspartate Amino Transferase 63 Units/L (5-34); BUN/Creatinine Ratio 8 (6-26); Bilirubin,Total 0.6 mg/dL (0.2-1.2); Blood Urea Nitrogen 9 mg/dL (8-26); Calcium 9.4 mg/dL (8.6-10.8); Carbon Dioxide 25 mEq/L (19-29); Chloride 105 mEq/L (98-109); Globulin 3.7 g/dL (2.4-3.5); Glucose 111 mg/dL (70-99); Osmolality,Calculated 285 (280-300); Potassium 3.8 mEq/L (3.5-4.5); Sodium 138 mEq/L (136-145); Total Protein 7.2 g/dL (6.0-8.3); eGFR For African Americans > 60 (> 60); eGFR For Non-African Americans > 60 (> 60)
[2017-02-23] MEDS: Pantoprazole 40 MG VIAL IVP SCH (05:54)
[2017-02-23] MEDS: cefOXitin 2,000 MG in D5% in Water (Mini-Bag+) 100 ML IVPB SCH (08:39)
[2017-02-23 10:07] VITALS: BP 129/83
== END 2017-02-23 12:25 | disposition home or self-care (01) | DRG 418 ==
LOC: 3ANU 20:36 → EMEROO 20:36 → OBSVTOIN 22:04 → 3ANU 22:19
PROVIDERS: ADMIT Surgery; ATTEND Surgery